=== PATIENT | female | born 1975 | race Caucasian/White ===

== ENCOUNTER 2020-07-21 00:15 | Emergency (ER) | payer OTHER, MEDICAID ==
[~2020-07-21] VITALS: Ht 167.6 cm; Wt 86.2 kg
--- NOTE | 2020-07-21 00:15 | NUR ---
PT S[facility]TH [facility]. TAKEN TO BED 11
[2020-07-21 00:20] VITALS: BP 160/90
--- NOTE | 2020-07-21 00:30 | NUR ---
PT BIBA FROM [facility] C/O RIGHT ANKLE PAIN X 1 DAY. PT DENIES FALLS/ TRAUMA. PT IS WHEELCHAIR BOUND PER EMS/ R ANKLE SWOLLEN, LIMITED ROM WILL CONTINUE TO OBSERVE. NKA PMH- CVA
[2020-07-21] MEDS ORDERED: KETOROLAC 60 MG/2 ML VIAL IM ONE (00:45)
--- NOTE | 2020-07-21 00:45 | NUR ---
PT REFUSED TORADOL. ERMD MADE AWARE
--- NOTE | 2020-07-21 01:50 | NUR ---
POSTERIOR SHORT LEG SPLINT PLACED ON PT R LEG, WRAPPED WITH SOURAV WRAP. PER REQUEST FROM DR BAILEY, WIDEST SIZE ORTHO GLASS USED IN PROCEDURE. +CSM
--- NOTE | 2020-07-21 02:38 | NUR ---
CALLED PT DAUGHTER RANDAL AT [phone] TO SEE IF SHE COULD RESIDENTIAL CASE MANAGER PATIENT. LEFT VOICEMAIL
[2020-07-21] MEDS ORDERED: HYDROcodone/APAP 5/325 MG 1 TAB TAB PO ONE ×2 (02:50→06:55)
--- NOTE | 2020-07-21 04:30 | NUR ---
PT HAS EYES CLOSED; FLACC 0. VSS. NO ACUTE DISTRESS NOTED. WILL CONTINUE TO OBSERVE
--- NOTE | 2020-07-21 05:45 | NUR ---
PT HAS EYES CLOSED FLACC 0. BILATERAL EQUAL CHEST RISE. NO AUCTE DISTRESS. WILL CONTINEU TO MONITOR.
--- NOTE | 2020-07-21 07:13 | NUR ---
REPORT GIVEN TO DAY SHIFT FOR CONTINUITY OF CARE
--- NOTE | 2020-07-21 07:14 | NUR ---
REPORT GIVEN TO DAY SHIFT FOR CONTINUITY OF CARE
--- NOTE | 2020-07-21 07:15 | NUR ---
RECEIVED REPORT FROM WOO DOBSON, TRANSFER OF CARE AT THIS TIME
--- NOTE | 2020-07-21 08:02 | NUR ---
PT IS LAYING IN BED WITH EVEN AND UNLABORED RESPIRATIONS OBSERVED. BED IN LOWEST POSITION, BRAKES LOCKED X1 SIDERAIL UP. WILL CONTINUE TO MONITOR
--- NOTE | 2020-07-21 09:17 | NUR ---
REPORT GIVEN TO HALLEY DOBSON AT [facility]. RIDE FOR TRANSFER IS HERE.
[2020-07-21 09:28] VITALS: BP 139/71
--- NOTE | 2020-07-21 09:28 | NUR ---
Patient discharged with v/s stable. Written and verbal after care instructions given and explained. Patient alert, oriented and verbalized understanding of instructions. Wheel Chair Assisted with to [facility]ci. All questions addressed prior to discharge. ID band removed. Patient advised to follow up with PMD. Rx of naprosyn 500mg tab BID given. Patient educated on indication of medication including possible reaction and side effects. Opportunity to ask questions provided and answered.
== END 2020-07-21 09:08 | disposition home or self-care (01) ==
LOC: MED 00:15
DX: S82.491A Other fracture of shaft of right fibula, initial encounter for closed fracture (principal); N18.9 Chronic kidney disease, unspecified; Z86.73 Personal history of transient ischemic attack (TIA), and cerebral infarction without residual deficits; X50.9XXA Other and unspecified overexertion or strenuous movements or postures, initial encounter; Y93.89 Activity, other specified; Y92.89 Other specified places as the place of occurrence of the external cause; Y99.8 Other external cause status
CPT/HCPCS: 29515; 73610; 99285; J1885

== ENCOUNTER 2020-07-22 20:28 | Emergency (ER) | payer OTHER, MEDICAID ==
[~2020-07-22] VITALS: Ht 152.4 cm; Wt 77.1 kg
[2020-07-22 20:46] VITALS: BP 146/86
[2020-07-22] MEDS ORDERED: LORazepam 1 MG TAB PO ONE (21:15)
[2020-07-22] MEDS ORDERED: HYDROcodone/APAP 5/325 MG 1 TAB TAB PO ONE (22:55)
[2020-07-23 04:12] VITALS: BP 159/98
== END 2020-07-23 04:12 | disposition home or self-care (01) ==
LOC: MED 20:28
DX: R25.2 Cramp and spasm (principal); D64.9 Anemia, unspecified; E78.5 Hyperlipidemia, unspecified; I25.2 Old myocardial infarction; I12.9 Hypertensive chronic kidney disease with stage 1 through stage 4 chronic kidney disease, or unspecified chronic kidney disease; N18.9 Chronic kidney disease, unspecified; Z86.73 Personal history of transient ischemic attack (TIA), and cerebral infarction without residual deficits; Z88.5 Allergy status to narcotic agent
CPT/HCPCS: 99285

== ENCOUNTER 2020-07-30 09:13 | Emergency (ER) | payer OTHER, MEDICAID ==
[~2020-07-30] VITALS: Ht 152.4 cm; Wt 77.1 kg
[2020-07-30 09:15] VITALS: BP 166/98
--- NOTE | 2020-07-30 09:15 | NUR ---
Patient assisted from [facility] onto hospital bed by EMS crew.
--- NOTE | 2020-07-30 09:20 | NUR ---
44 y/o female SOUTH from [facility] with c/c foot pain. Per EMS, staff found patient more lethargic than usual during morning medication pass. [facility] crew states responsive to verbal stimuli and is baseline A&Ox1. Upon assessment, patient presents A&Ox4 and states she smoked meth yesterday at midnight 07/30 and states chief complaint of ankle pain. Pt states she fractured her ankle in June and describes pain 8. 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 Pupils pinpoint 2mm, equal, round & reactive to light. Pt denies dizziness, SOB, blurry vision, chest pain. media monitor in place. Respirations even/unlabored. Lung sounds CTA. PMH/Meds: "4 strokes in the past" Meds: amlodipine, ASA, atorvastatin, celecxib, gabapentin, hydralazine, hydrochlorothiazide, metoprolol, clonidine Allergies: Codeine Addendum: 07/30/20 at 0952 by [facility] 44 y/o female SOU[facility] from [facility] with c/c foot pain. Per EMS, staff found patient with a "bong device" at her feet and presented more lethargic than usual during morning medication pass. [facility] crew states patient is responsive to verbal stimuli with baseline A&Ox1. Upon assessment, patient presents A&Ox4 and states she smoked meth yesterday at midnight 07/30 and is complaining of right ankle pain. Pt states she fractured her ankle in June and describes pain 8/. 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 Pupils pinpoint 2mm, equal, round & reactive to light. Pt denies dizziness, SOB, blurry vision, chest pain, N/V, fever/chills, cough. media monitor in place. Patient noted hypertensive 166/98. Respirations even/unlabored. Lung sounds CTA. Bed locked in lowest position, side rails x 2 for patient safety, call light in reach. PMH/Meds: CVA x 4, MD/CAD, chronic kidney disease, schizophrenia, multiple personality disorder Meds: amlodipine, ASA, atorvastatin, celecxib, gabapentin, hydralazine, hydrochlorothiazide, metoprolol, clonidine Allergies: Codeine Sx: Cholecystectomy
[2020-07-30] MEDS ORDERED: CLON-268 PO (09:25)
[2020-07-30] MEDS ORDERED: DICL100G5 TP (09:25)
[2020-07-30] MEDS ORDERED: HYDR-1098 PO (09:25)
[2020-07-30] MEDS ORDERED: FERR325E14 PO (09:25)
[2020-07-30] MEDS ORDERED: METO25TE2 PO (09:25)
[2020-07-30] MEDS ORDERED: [UNRECOGNIZED DRUG - CODE] PO (09:25)
[2020-07-30] MEDS ORDERED: AMLO10TA PO (09:25)
[2020-07-30] MEDS ORDERED: CELE100C PO (09:25)
[2020-07-30] MEDS ORDERED: ASPI-1822 PO (09:25)
[2020-07-30] MEDS ORDERED: BENZ1GEL13 MM (09:25)
[2020-07-30] MEDS ORDERED: GABA300C PO (09:25)
[2020-07-30] MEDS ORDERED: DOCU-299 PO (09:25)
[2020-07-30] MEDS ORDERED: ATOR20TA PO (09:25)
[2020-07-30] MEDS ORDERED: HYDR-4004 PO (09:25)
[2020-07-30] MEDS ORDERED: CHOL100013 PO (09:25)
[2020-07-30] MEDS ORDERED: ACET-1182 PO (09:25)
--- NOTE | 2020-07-30 09:30 | NUR ---
Dr. Cruz is evaluating patient at bedside.
--- NOTE | 2020-07-30 09:48 | NUR ---
X-ray at bedside.
--- NOTE | 2020-07-30 10:09 | NUR ---
EMT at bedside for splint application.
--- NOTE | 2020-07-30 10:10 | NUR ---
Patient presents lying on left side in supine position. drive thru order taker in place. Respirations even/unlabored. No distress noted at this time. Bed locked in lowest position, side rails x 2 for patient safety, call light in reach.
--- NOTE | 2020-07-30 10:17 | NUR ---
applied posterior short leg splint to right ankle without any issues
--- NOTE | 2020-07-30 11:09 | NUR ---
Patient presents laying on left side in supine position. chicken picker in place. Respirations even/unlabored. No distress noted at this time. Bed locked in lowest position, side rails x 2 for patient safety, call light in reach.
--- NOTE | 2020-07-30 11:10 | NUR ---
Patient made aware of transportation time back to [facility] at 1200. All pt needs met at this time.
[2020-07-30] MEDS ORDERED: ACETAMINOPHEN 325 MG TAB PO ONE (11:50)
[2020-07-30] MEDS ORDERED: ACETAMINOPHEN 325 MG TAB ONE (11:50)
[2020-07-30 11:53] VITALS: BP 160/90
--- NOTE | 2020-07-30 11:53 | NUR ---
Patient discharged with v/s stable. Written and verbal after care instructions given and explained. Patient verbalized understanding. Patient was w/c assisted to van with electric truck driver to take patient to facility. All questions addressed prior to discharge. Advised to follow up with PMD and referral to orthopedic provided in dc paperwork. Copy of reports and CD with images provided. All paperwork and disc given to patient.
== END 2020-07-30 11:53 | disposition home or self-care (01) ==
LOC: MED 09:13
DX: S82.891D Other fracture of right lower leg, subsequent encounter for closed fracture with routine healing (principal); F15.10 Other stimulant abuse, uncomplicated; G81.91 Hemiplegia, unspecified affecting right dominant side; R60.0 Localized edema; I13.10 Hypertensive heart and chronic kidney disease without heart failure, with stage 1 through stage 4 chronic kidney disease, or unspecified chronic kidney disease; N18.9 Chronic kidney disease, unspecified; Z86.73 Personal history of transient ischemic attack (TIA), and cerebral infarction without residual deficits; X58.XXXA Exposure to other specified factors, initial encounter
CPT/HCPCS: 29515; 73610; 99283